=== PATIENT | female | born 1975 | race Caucasian/White ===

== ENCOUNTER 2022-01-18 22:50 | Inpatient (IN) | payer MEDICAID ==
[~2022-01-18] VITALS: Ht 1 cm; Wt 70.5 kg
[2022-01-18 23:05] VITALS: BP 101/60
[2022-01-19] MEDS ORDERED: HYDROcodone-ACET 7.5/325MG TAB PO ONE (00:45)
[2022-01-19] MEDS: SODIUM CHLORIDE 0.9% 1,000 ML IV SCH ×2 (01:00→14:38)
[2022-01-19] MEDS ORDERED: HYDROmorphone HCL 2 MG/ML VL/or syr IV PRN ×2 (01:00→05:00)
[2022-01-19] MEDS ORDERED: HYDROcodone-ACET 7.5/325MG TAB PO PRN ×3 (01:00→05:30)
[2022-01-19 01:20] LABS: Basophils # (auto) 0.1 10 ^3/uL (0-0.2); Basophils % (auto) 1.7 % (0.0-2.0); Eosinophils # (auto) 0.2 10 ^3/uL (0-0.8); Eosinophils % (auto) 2.2 % (0.0-7.0); Hematocrit 28.6 % (36.0-46.0); Hemoglobin 9.6 g/dL (12.2-16.2); Lymphocytes # (auto) 2.6 10 ^3/uL (0.4-5.4); Lymphocytes % (auto) 30.4 % (10.0-50.0); Mean Corpuscular Hemoglobin 33.6 pg (28.0-32.0); Mean Corpuscular Hgb Conc. 33.5 g/dL (32.0-36.0); Mean Corpuscular Volume 100.3 fL (80.0-100.0); Monocytes # (auto) 0.6 10 ^3/uL (0-1.3); Monocytes % (auto) 6.5 % (0.0-12.0); Neutrophils # (auto) 5.1 10 ^3/uL (1.6-8.6); Neutrophils % (auto) 59.2 % (37.0-80.0); Nucleated Red Blood Cells % 0.1 %; Red Blood Cells 2.85 10^6/uL (4.0-5.20); White Blood Cell 8.5 10^3/uL (4.4-10.8)
[2022-01-19 01:28] LABS: INR 1.46 (0.9-1.15); Partial Thromboplastin Time 34.8 sec (24.6-33.4); Red Cell Distribution Width 21.5 % (11.8-14.3)
[2022-01-19 01:33] LABS: Albumin 2.3 g/dL (3.4-5.0); BUN/Creatinine Ratio 7.7; Calcium 8.1 mg/dL (8.5-10.1); Potassium 3.5 mmol/L (3.5-5.1)
[2022-01-19 01:36] LABS: Bilirubin, Total 2.6 mg/dL (0.2-1.0); Total Protein 7.3 g/dL (6.4-8.2)
[2022-01-19 05:00] VITALS: BP 97/56
[2022-01-19] MEDS: ONDANSETRON HCL 4 MG/2 ML VIAL IV PRN ×5 (05:05→22:32)
[2022-01-19 09:22] VITALS: BP 100/52
[2022-01-19] MEDS: PANTOPRAZOLE 40 MG/10 ML VIAL INJ IV SCH (09:58)
[2022-01-19] MEDS: HYDROmorphone HCL 2 MG/ML VL/or syr IV PRN ×4 (09:59→22:33)
[2022-01-19] MEDS ORDERED: PHYTONADIONE (VIT K)10 MG/ML 1ML VIAL SUBCUT ONE (10:30)
[2022-01-19] MEDS ORDERED: phytonadione 5 MG in SODIUM CHL 0.9% 50 ML IV ONE (11:00)
[2022-01-19 13:00] VITALS: BP 106/56
[2022-01-19] MEDS: HYDROcodone-ACET 10/325MG TAB PO PRN ×2 (14:38→19:55)
[2022-01-19 17:01] VITALS: BP 119/57
[2022-01-19 22:00] VITALS: BP 111/53
[2022-01-20] VITALS (7 sets, daily range): BP systolic 103–124; BP diastolic 52–61
[2022-01-20] MEDS: HYDROcodone-ACET 10/325MG TAB PO PRN ×4 (00:50→20:20)
[2022-01-20] MEDS: SODIUM CHLORIDE 0.9% 1,000 ML IV SCH (03:40)
[2022-01-20] MEDS: HYDROmorphone HCL 2 MG/ML VL/or syr IV PRN ×4 (04:58→22:46)
[2022-01-20] MEDS: ONDANSETRON HCL 4 MG/2 ML VIAL IV PRN ×4 (05:03→20:19)
[2022-01-20 05:53] LABS: Albumin 1.8 g/dL (3.4-5.0); BUN/Creatinine Ratio 9.2; Calcium 7.5 mg/dL (8.5-10.1); Potassium 3.7 mmol/L (3.5-5.1)
[2022-01-20 05:55] LABS: Bilirubin, Total 1.8 mg/dL (0.2-1.0)
[2022-01-20 05:56] LABS: Eosinophils # (auto) 0.1 10 ^3/uL (0-0.8); Hemoglobin 8.3 g/dL (12.2-16.2); Mean Corpuscular Hgb Conc. 32.6 g/dL (32.0-36.0); Monocytes # (auto) 0.4 10 ^3/uL (0-1.3)
[2022-01-20 06:03] LABS: Basophils # (auto) 0.1 10 ^3/uL (0-0.2); Basophils % (auto) 1.1 % (0.0-2.0); Eosinophils % (auto) 2.3 % (0.0-7.0); Hematocrit 25.6 % (36.0-46.0); Lymphocytes % (auto) 38.2 % (10.0-50.0); Mean Corpuscular Hemoglobin 32.8 pg (28.0-32.0); Mean Corpuscular Volume 100.4 fL (80.0-100.0); Monocytes % (auto) 7.7 % (0.0-12.0); Neutrophils # (auto) 2.6 10 ^3/uL (1.6-8.6); Neutrophils % (auto) 50.7 % (37.0-80.0); Nucleated Red Blood Cells % 0.1 %; Red Blood Cells 2.55 10^6/uL (4.0-5.20); White Blood Cell 5.2 10^3/uL (4.4-10.8)
[2022-01-20 06:14] LABS: Red Cell Distribution Width 22.1 % (11.8-14.3)
[2022-01-20 07:22] LABS: INR 1.56 (0.9-1.15); Partial Thromboplastin Time 33.1 sec (24.6-33.4)
[2022-01-20] MEDS: PANTOPRAZOLE 40 MG/10 ML VIAL INJ IV SCH (09:23)
[2022-01-20] MEDS: ENOXAPARIN SOD 40 MG/0.4 ML SYRINGE SC SCH (09:27)
[2022-01-21] VITALS (7 sets, daily range): BP systolic 107–126; BP diastolic 46–56
[2022-01-21] MEDS: ONDANSETRON HCL 4 MG/2 ML VIAL IV PRN ×4 (01:50→20:06)
[2022-01-21] MEDS: HYDROcodone-ACET 10/325MG TAB PO PRN ×3 (03:48→20:06)
[2022-01-21] MEDS: HYDROmorphone HCL 2 MG/ML VL/or syr IV PRN ×3 (06:30→21:23)
[2022-01-21] MEDS: ENOXAPARIN SOD 40 MG/0.4 ML SYRINGE SC SCH (09:49)
[2022-01-22] VITALS (7 sets, daily range): BP systolic 105–119; BP diastolic 48–66
[2022-01-22] MEDS: HYDROmorphone HCL 2 MG/ML VL/or syr IV PRN ×4 (04:35→23:14)
[2022-01-22] MEDS: ONDANSETRON HCL 4 MG/2 ML VIAL IV PRN ×5 (04:35→20:41)
[2022-01-22] MEDS: HYDROcodone-ACET 10/325MG TAB PO PRN ×3 (08:19→20:41)
[2022-01-22] MEDS: ENOXAPARIN SOD 40 MG/0.4 ML SYRINGE SC SCH (10:00)
[2022-01-23] MEDS: ONDANSETRON HCL 4 MG/2 ML VIAL IV PRN ×5 (02:15→21:41)
[2022-01-23] MEDS: HYDROcodone-ACET 10/325MG TAB PO PRN ×4 (03:09→22:57)
[2022-01-23 04:49] VITALS: BP 106/54
[2022-01-23] MEDS: HYDROmorphone HCL 2 MG/ML VL/or syr IV PRN ×3 (06:06→21:41)
[2022-01-23 08:00] VITALS: BP 130/49
[2022-01-23 09:00] VITALS: BP 100/49
[2022-01-23] MEDS: ENOXAPARIN SOD 40 MG/0.4 ML SYRINGE SC SCH ×2 (09:46→09:50)
[2022-01-23 13:00] VITALS: BP 104/55
[2022-01-23 14:01] LABS: Albumin 1.8 g/dL (3.4-5.0); Calcium 8.2 mg/dL (8.5-10.1); Potassium 4.3 mmol/L (3.5-5.1)
[2022-01-23 14:04] LABS: BUN/Creatinine Ratio 6.6; Bilirubin, Total 1.6 mg/dL (0.2-1.0); Total Protein 6.5 g/dL (6.4-8.2)
[2022-01-23 14:05] LABS: INR 1.7 (0.9-1.15); Partial Thromboplastin Time 37.5 sec (24.6-33.4)
[2022-01-23 16:57] VITALS: BP 104/51
[2022-01-23 22:00] VITALS: BP 111/53
[2022-01-23 23:35] LABS: Basophils # (auto) 0.1 10 ^3/uL (0-0.2); Eosinophils # (auto) 0.2 10 ^3/uL (0-0.8)
[2022-01-23 23:39] LABS: Basophils % (auto) 0.7 % (0.0-2.0); Eosinophils % (auto) 2.8 % (0.0-7.0); Hematocrit 28.3 % (36.0-46.0); Lymphocytes # (auto) 2.2 10 ^3/uL (0.4-5.4); Mean Corpuscular Hemoglobin 33.6 pg (28.0-32.0); Mean Corpuscular Hgb Conc. 31.8 g/dL (32.0-36.0); Mean Corpuscular Volume 105.7 fL (80.0-100.0); Monocytes # (auto) 0.5 10 ^3/uL (0-1.3); Monocytes % (auto) 6.6 % (0.0-12.0); Neutrophils # (auto) 4.6 10 ^3/uL (1.6-8.6); Neutrophils % (auto) 60.9 % (37.0-80.0); Nucleated Red Blood Cells % 0.2 %; Red Blood Cells 2.67 10^6/uL (4.0-5.20); Red Cell Distribution Width 23.5 % (11.8-14.3); White Blood Cell 7.5 10^3/uL (4.4-10.8)
[2022-01-24] VITALS (8 sets, daily range): BP systolic 108–117; BP diastolic 48–61
[2022-01-24] MEDS: HYDROcodone-ACET 10/325MG TAB PO PRN ×5 (04:03→22:11)
[2022-01-24] MEDS: ONDANSETRON HCL 4 MG/2 ML VIAL IV PRN ×5 (04:04→22:11)
[2022-01-24] MEDS: HYDROmorphone HCL 2 MG/ML VL/or syr IV PRN ×3 (06:33→23:42)
[2022-01-24] MEDS: ENOXAPARIN SOD 40 MG/0.4 ML SYRINGE SC SCH (09:33)
[2022-01-25] MEDS: HYDROcodone-ACET 10/325MG TAB PO PRN ×2 (03:01→10:37)
[2022-01-25] MEDS: ONDANSETRON HCL 4 MG/2 ML VIAL IV PRN ×2 (03:01→08:13)
[2022-01-25 04:41] VITALS: BP 107/55
[2022-01-25] MEDS: HYDROmorphone HCL 2 MG/ML VL/or syr IV PRN (07:54)
[2022-01-25] MEDS: ENOXAPARIN SOD 40 MG/0.4 ML SYRINGE SC SCH (08:36)
[2022-01-25 09:00] VITALS: BP 115/50
[2022-01-25 13:07] VITALS: BP 110/46
[2022-01-25] MEDS ORDERED: HYDR-4902 PO (14:10)
[2022-01-25] MEDS ORDERED: PROBCAP9 PO (14:10)
== END 2022-01-25 14:00 | disposition home or self-care (01) ==
LOC: EAST 22:50
PROVIDERS: ADMIT Nurse Practitioner; ATTEND Hospitalist
DX: K80.21 Calculus of gallbladder without cholecystitis with obstruction (principal); K76.6 Portal hypertension; R74.01 Elevation of levels of liver transaminase levels; I10 Essential (primary) hypertension; Z20.822 Contact with and (suspected) exposure to COVID-19; Z93.2 Ileostomy status; Z90.49 Acquired absence of other specified parts of digestive tract
CPT/HCPCS: 36415; 76705; 78226; 80053; 83605; 85025; 85610; 85730; C9113; G0378; J2405; J3430